=== PATIENT | male | born 1955 | race Caucasian/White ===

== ENCOUNTER 2018-02-14 12:04 | Emergency (ER) | payer SELFPAY ==
--- NOTE | 2018-02-14 12:10 | EDM.PDOC ---
ED HPI GENERAL MEDICAL PROBLEM - General Stated Complaint: HEAD INJURY Time Seen by Provider: 02/14/18 12:04 Source of Information: Reports: Patient History Limitations: Reports: No Limitations - History of Present Illness INITIAL COMMENTS - FREE TEXT/NARRATIVE: HISTORY AND PHYSICAL: History of present illness: Patient is a 62-year-old male who presents to the emergency room today with complaints of head laceration. He was putting up shelving unit when the shelf fell hitting them on top of the head resulting in a 2 cm laceration to the top of his head. Consciousness, change in vision, headache or neck pain. Unsure of his last tetanus shot. She does not take any blood thinners or elsv-mpf-evupxeh aspirins. Review of systems: As per history of present illness and below otherwise all systems reviewed and negative. Past medical history: As per history of present illness and as reviewed below otherwise noncontributory. Surgical history: As per history of present illness and as reviewed below otherwise noncontributory. Social history: No reported history of drug or alcohol abuse. Family history: As per history of present illness and as reviewed below otherwise noncontributory. Physical exam: General: Well-developed and well-nourished 62-year-old male. Alert and oriented. Nontoxic appearing and in no acute distress. HEENT: 2 cm laceration noted to the top left part of his head. no crepitus, deformities or other injury noted normocephalic, pupils equal and reactive bilaterally, negative for conjunctival pallor or scleral icterus, mucous membranes moist, throat clear, neck supple, nontender, trachea midline. No drooling or trismus noted. No meningeal signs Lungs: Clear to auscultation, breath sounds equal bilaterally, chest nontender. Heart: S1S2, regular rate and rhythm without overt murmur Abdomen: Soft, nondistended, nontender. Negative for masses or hepatosplenomegaly. Negative for costovertebral tenderness. Pelvis: Stable nontender. Genitourinary: Deferred. Rectal: Deferred. Skin: 2 cm well approximated, superficial laceration noted to the top left portion of scalp. Intact, warm, dry. No lesions or rashes noted. Extremities: Atraumatic, negative for cords or calf pain. Neurovascular unremarkable. Neuro: Awake, alert, oriented. Cranial nerves II through XII unremarkable. Cerebellum unremarkable. Motor and sensory unremarkable throughout. Exam nonfocal. Notes: Discussed doing a CT (risks vs benefits), patient declined CT at this time. He is not on any bloodthinners, has no neurological complaints, did not fall, nor LOC. Wound care done. #1 staple was placed to ensure the wound stays adhered. Tdap updated. Patient's blood pressure readings were high while here. We did discuss follow- up with his primary care provider. He voices understanding and is agreeable. Declines any further questions or concerns about it at this time. Diagnostics: [] Therapeutics: Tdap, Wound care Impression: Head Injury Plan: 1. Please review and follow the head injury instructions we discussed and that are printed in your discharge packet. 2. Monitor for signs of infection. Staple to be removed in 5-7 days. 3. Tylenol and or ibuprofen as needed for pain management. May apply ice 3-4 times daily 4. Follow-up with your primary caregiver in the next 1-2 days. Return to the ED as needed and as discussed. Definitive disposition and diagnosis as appropriate pending reevaluation and review of above. Onset: Today Duration: Minutes: Location: Reports: Head - Related Data Allergies Allergy/AdvReac Type Severity Reaction Status Date / Time procaine [From Novocain] Allergy Nausea Verified 02/14/18 12:07 Home Meds: Home Meds . [No Known Home Meds] 02/14/18 [History] ED ROS GENERAL - Review of Systems Review Of Systems: ROS reveals no pertinent complaints other than HPI. ED EXAM, GENERAL - Physical Exam Exam: See Below (See dictation) ED GENERAL MEDICAL PROCEDURES - Laceration/Wound Repair Left upper scalp Lac/wound length in cm: 2 Appearance: Linear Distal NVT: Other (Declined) Skin Prep: Chlorhexidine (Hibiciens), Saline Exploration/Debridement/Repair: Wound Explored, No Foreign Material Found Closed with: Stella # of Sutures: 1 Tetanus Status Addressed: Yes Complications: No Course - Vital Signs Last Recorded V/S: Last Vital Signs Temp 98.2 F 02/14/18 12:07 Pulse 92 02/14/18 12:07 Resp 18 02/14/18 12:07 BP 186/107 H 02/14/18 12:07 Pulse Ox 94 L 02/14/18 12:07 - Orders/Labs/Meds Orders: Active Orders 24 hr Category Date Time Status Communication Order [RC] STAT Care 02/14/18 12:16 Ordered Vaccines to be Administered [RC] PER UNIT ROUTINE Care 02/14/18 12:17 Ordered Meds: Medications Discontinued Medications Generic Name Dose Route Start Last Admin Trade Name Tenisha PRN Reason Stop Dose Admin Diphtheria/Tetanus/Acell Pertussis 0.5 ml 02/14/18 12:16 Adacel IM 02/14/18 12:17 .ONCE ONE Departure - Departure Time of Disposition: 12:22 Disposition: Home, Self-Care 01 Clinical Impression: Laceration Head injury Qualifiers: Encounter type: initial encounter Qualified Code(s): S09.90XA - Unspecified injury of head, initial encounter - Discharge Information Instructions: Head Injury, Adult, [id number], Facial Laceration, Phyz-[id number] Additional Instructions: The following information is given to patients seen in the emergency department who are being discharged to home. This information is to outline your options for follow-up care. We provide all patients seen in our emergency department with a follow-up referral. The need for follow-up, as well as the timing and circumstances, are variable depending upon the specifics of your emergency department visit. If you don't have a primary care physician on staff, we will provide you with a referral. We always advise you to contact your personal physician following an emergency department visit to inform them of the circumstance of the visit and for follow-up with them and/or the need for any referrals to a consulting specialist. The emergency department will also refer you to a specialist when appropriate. This referral assures that you have the opportunity for follow-up care with a specialist. All of these measure are taken in an effort to provide you with optimal care, which includes your follow-up. Under all circumstances we always encourage you to contact your private physician who remains a resource for coordinating your care. When calling for follow-up care, please make the office aware that this follow-up is from your recent emergency room visit. If for any reason you are refused follow-up, please contact the [facility] at and asked to speak to the emergency department charge nurse. [facility] [address] [place] [id number] 1. Please review and follow the head injury instructions we discussed and that are printed in your discharge packet. 2. Monitor for signs of infection. Staple to be removed in 5-7 days. 3. Tylenol and or ibuprofen as needed for pain management. May apply ice 3-4 times daily 4. Follow-up with your primary caregiver in the next 1-2 days. Return to the ED as needed and as discussed. - My Orders Last 24 Hours: My Active Orders 02/14/18 12:16 Communication Order [RC] STAT 02/14/18 12:17 Vaccines to be Administered [RC] PER UNIT ROUTINE - Assessment/Plan Last 24 Hours: My Active Orders 02/14/18 12:16 Communication Order [RC] STAT 02/14/18 12:17 Vaccines to be Administered [RC] PER UNIT ROUTINE
[2018-02-14] MEDS ORDERED: Diphtheria,Pertussis(Acell),Tetanus Vaccine 0.5 ML Syringe IM ONE (12:16)
== END 2018-02-14 12:59 | disposition home or self-care (01) ==
LOC: MW.ED 12:04
DX: S01.01XA Laceration without foreign body of scalp, initial encounter (principal); S09.90XA Unspecified injury of head, initial encounter; Z23 Encounter for immunization; W20.8XXA Other cause of strike by thrown, projected or falling object, initial encounter; Z88.8 Allergy status to other drugs, medicaments and biological substances
CPT/HCPCS: 12001; 90471; 90715; 99282; 99283-25

== ENCOUNTER 2018-03-23 14:24 | Emergency (ER) | payer BC | END 2018-03-23 14:30 | disposition left against medical advice (07) | LOC: MW.ED 14:24 | DX: Z53.21 Procedure and treatment not carried out due to patient leaving prior to being seen by health care provider (principal) ==